=== PATIENT | male | born 1990 | race Caucasian/White ===

== ENCOUNTER 2018-04-22 20:55 | Emergency (ER) | payer OTHER | END 2018-04-22 22:59 | disposition home or self-care (01) | LOC: E/R 22:59 | DX: K21.9 Gastro-esophageal reflux disease without esophagitis (principal); R07.89 Other chest pain | CPT/HCPCS: 71045; 99284-25 ==

== ENCOUNTER 2018-06-14 15:31 | Emergency (ER) | payer OTHER ==
[2018-06-14] MEDS: LORAZEPAM 1 MG TAB PO (16:19)
== END 2018-06-14 16:29 | disposition home or self-care (01) ==
LOC: FTE 15:31
DX: F41.9 Anxiety disorder, unspecified (principal)
CPT/HCPCS: 99283